=== PATIENT | female | born 1950 | race Caucasian/White ===

== ENCOUNTER → 2018-04-04 | Day surgery (SDC) | payer MEDICARE, OTHER ==
[2018-03-29 12:29] LABS: BASOPHILS % 0.5 % (0.0-1.0); EOSINOPHILS # (AUTO) 0.1 (0.0-0.4); EOSINOPHILS % 2.8 % (0.0-6.0); HEMATOCRIT 28.6 % (34.2-44.1); HEMOGLOBIN 8.8 g/dL (12.0-16.0); LYMPHOCYTES # (AUTO) 1.9 (1.0-3.2); LYMPHOCYTES % 43.3 % (18.0-39.1); MEAN CORPUSCULAR HGB CONC 30.8 g/dL (31-35); MEAN CORPUSCULAR VOLUME 84.4 fL (81-99); MONOCYTES # (AUTO) 0.4 (0.2-0.8); NEUTROPHILS # (AUTO) 1.9 (2.1-6.9); NEUTROPHILS % 43.2 % (38.7-80.0); PLATELET COUNT 188 x10e3/uL (140-360); RED BLOOD COUNT 3.39 x10e6/uL (3.6-5.1); RED CELL DISTRIBUTION WIDTH 14.2 % (11.7-14.4)
[2018-03-29 12:45] LABS: ANION GAP 12.2 mmol/L (8-16); CALCIUM 9.7 mg/dL (8.4-10.2); CREATININE, SERUM 1.09 mg/dL (0.57-1.11)
[2018-03-29 12:51] LABS: POTASSIUM 6.2 mmol/L (3.5-5.1)
--- NOTE | 2018-03-29 12:58 | Diagnostic Imaging Report ---
PROCEDURE: X-RAY CHEST, TWO VIEWS COMPARISON: 07/11/2012. INDICATIONS: PREOPERATIVE CHEST XRAY FOR FOOT SURGERY FINDINGS: Lungs are well-inflated. No focal consolidation, pleural effusion, or pneumothorax. Cardiomediastinal contour and pulmonary vasculature are within normal limits with the exception of atherosclerotic calcification of the thoracic aorta, unchanged. No pulmonary edema. No acute osseous abnormality. CONCLUSION: No acute cardiopulmonary abnormality. Dictated by: Kaiser Briceno M.D. on 03/29/2018 at 13:03 Electronically approved by: Kaiser Briceno M.D. on 03/29/2018 at 13:03
[2018-03-31 16:53] LABS: BASOPHILS % 0.3 % (0.0-1.0); EOSINOPHILS # (AUTO) 0.1 (0.0-0.4); EOSINOPHILS % 1.9 % (0.0-6.0); HEMATOCRIT 26.3 % (34.2-44.1); HEMOGLOBIN 8.2 g/dL (12.0-16.0); LYMPHOCYTES # (AUTO) 1.6 (1.0-3.2); LYMPHOCYTES % 43.9 % (18.0-39.1); MEAN CORPUSCULAR HEMOGLOBIN 25.9 pg (28-32); MEAN CORPUSCULAR HGB CONC 31.2 g/dL (31-35); MONOCYTES # (AUTO) 0.5 (0.2-0.8); MONOCYTES % 12.6 % (4.4-11.3); NEUTROPHILS # (AUTO) 1.5 (2.1-6.9); PLATELET COUNT 179 x10e3/uL (140-360); RED BLOOD COUNT 3.17 x10e6/uL (3.6-5.1); RED CELL DISTRIBUTION WIDTH 14.1 % (11.7-14.4)
[2018-03-31 17:08] LABS: ANION GAP 13.3 mmol/L (8-16); CALCIUM 9.6 mg/dL (8.4-10.2); CREATININE, SERUM 1.12 mg/dL (0.57-1.11)
[2018-03-31 17:09] LABS: POTASSIUM 5.3 mmol/L (3.5-5.1)
[~2018-04-04] MED LIST: ASPIRIN CHEW81 MG PO; BUPIVACAINE HCL 0.5% 10ML MPF VIAL INJ ONE; CALCIUM CARBON500 MG PO; CEFAZOLIN SOD 2 GM/D5W 50ML 50 ML IV ONE; CELLCEPT500 MG PO; DEXAMETHASONE SOD PHOS INJ 4 MG/ML VIAL ONE; EPHEDRINE SULFATE INJ 50 MG/10 ML SYR ONE; FENTANYL CITRATE/PF 100MCG/2 ML INJ ONE; LEVOTHYROXINE88 MCG PO; LIDOCAINE HCL 2% LOCAL INJ 5 ML SDV VIAL INJ ONE; MAG6464 MG PO; METOPROLOL TART50 MG PO; MIDAZOLAM HCL 2 MG/2 ML VIAL ONE; MIRTAZAPINE15 MG PO; MULTIVITAMINS1 EAC7 PO; ONDANSETRON HCL INJ 2 MG/ML VIAL ONE; OS-CAL 500+D T1 EACH PO; PRAVASTATIN SOD20 MG PO; PROGRAF0.5 MG PO; PROPOFOL IV EMULSION 10 MG/ML 20 ML VIAL ONE; PYRIDOXINE HCL50 MG PO; SEVOFLURANE INHAL SOLN 250 ML PEN BTL ONE; TACROLIMUS1 MG PO; VITAMIN D250000 UNIT PO; Z.0.LEVOTHYROXINE112 PO; Z.0.LISINOPRIL10 MG PO
[2018-04-04 07:22] LABS: BASOPHILS % 0.7 % (0.0-1.0); EOSINOPHILS # (AUTO) 0.1 (0.0-0.4); EOSINOPHILS % 2.9 % (0.0-6.0); HEMATOCRIT 26.4 % (34.2-44.1); HEMOGLOBIN 8.3 g/dL (12.0-16.0); LYMPHOCYTES # (AUTO) 1.5 (1.0-3.2); LYMPHOCYTES % 35.5 % (18.0-39.1); MEAN CORPUSCULAR HEMOGLOBIN 25.8 pg (28-32); MEAN CORPUSCULAR HGB CONC 31.4 g/dL (31-35); MONOCYTES # (AUTO) 0.5 (0.2-0.8); MONOCYTES % 11.4 % (4.4-11.3); NEUTROPHILS # (AUTO) 2.1 (2.1-6.9); NEUTROPHILS % 49.3 % (38.7-80.0); PLATELET COUNT 188 x10e3/uL (140-360); RED BLOOD COUNT 3.22 x10e6/uL (3.6-5.1); RED CELL DISTRIBUTION WIDTH 14.2 % (11.7-14.4)
--- NOTE | 2018-04-04 10:47 | Operative Report ---
DATE OF PROCEDURE: April 04, 2018 PREOPERATIVE DIAGNOSIS: Retained painful hardware, right foot, with concomitant entrapment neuritis. POSTOPERATIVE DIAGNOSIS: Retained painful hardware, right foot, with concomitant entrapment neuritis. OPERATION PERFORMED: Removal of painful hardware, right foot. 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 HEMOSTASIS: Pneumatic tourniquet, right thigh, inflated to 350 mmHg. ESTIMATED BLOOD LOSS: Less than 5 mL. PATHOLOGY: None. COMPLICATIONS: Unable to remove hardware in its entirety. DESCRIPTION OF PROCEDURE: Ms. Reyes is a pleasant, 67-year-old female having discomfort and pain associated with her right foot secondary to the aforementioned diagnoses. She was explained the need for hardware removal, and she is willing and able to proceed with the same. Unfortunately, one of the complications potentially discussed was the possibility of not being able to remove the entire hardware. Indeed, this occurred. Under mild sedation, she was brought to the operating room and placed on the operating room table in the supine position. Following induction and administration of general LMA anesthesia by anesthesia service, a well-padded pneumatic tourniquet was placed on the patient's right thigh. After this, the right lower extremity was scrubbed, prepped and draped in the usual aseptic manner. The extremity was then elevated and exsanguinated, and the tourniquet was inflated to 350 mmHg. Attention was then directed to the dorsum of the 1st MPJ area of the right foot where a linear longitudinal incision was created about this site. The incision was deepened utilizing sharp, blunt and electrocautery dissection. Once at the level of the plate, utilizing multiple attempts with universal hardware removal and multiple other hardware from other vendors, the most proximal screw, which was the one indeed bothering the patient, was excised and removed, but the rest unfortunately I was unable to do the same. The area was then copiously irrigated and then closed in layers. Upon palpating subsequently, it felt that the area of concern was addressed due to decreasing and eliminating the prominence that was symptomatic to the patient. The patient was then subsequently extubated. Dressings were applied, and she was transferred to the PACU with vital signs stable. Job#: [id number]
== END | disposition home or self-care (01) ==
LOC: OR 06:26
PROVIDERS: ATTEND Podiatrist Foot Surgery
DX: T84.84XA Pain due to internal orthopedic prosthetic devices, implants and grafts, initial encounter (principal); G58.8 Other specified mononeuropathies; I10 Essential (primary) hypertension; E78.5 Hyperlipidemia, unspecified; Y83.8 Other surgical procedures as the cause of abnormal reaction of the patient, or of later complication, without mention of misadventure at the time of the procedure; Z01.812 Encounter for preprocedural laboratory examination; Z01.818 Encounter for other preprocedural examination; Z94.4 Liver transplant status; Z79.82 Long term (current) use of aspirin; Z86.19 Personal history of other infectious and parasitic diseases; Z85.05 Personal history of malignant neoplasm of liver
CPT/HCPCS: 20680; 36415 ×3; 71046; 80048 ×2; 84132; 85025 ×3; J1100; J2001; J2250; J2405